=== PATIENT | female | born 1965 | race American Indian/Alaskan Native ===

== ENCOUNTER 2020-05-04 14:15 | Emergency (ER) | payer SELFPAY ==
[2020-05-04 14:21] VITALS: BP 212/97
--- NOTE | 2020-05-04 15:22 | Emergency Department Report ---
Blank Doc - Documentation Documentation: 55-year-old female that presents with right shoulder, neck and lower back pains s/p fall 3 days ago. Exam: spinal tenderness and shoulder tenderness This initial assessment/diagnostic orders/clinical plan/treatment(s) is/are subject to change based on patient's health status, clinical progression and re- assessment by fellow clinical providers in the ED. Further treatment and workup at subsequent clinical providers discretion. Patient/guardians urged not to elope from the ED as their condition may be serious if not clinically assessed and managed. Initial orders include: 1- Patient sent to [facility] for further evaluation and treatment 2- xrays
--- NOTE | 2020-05-04 16:24 | XRay Report ---
RIGHT SHOULDER 3 VIEWS INDICATION: pain s/p fall. COMPARISON: None. IMPRESSION: No acute osseous or soft tissue abnormality. No significant DJD. CERVICAL SPINE 3 VIEWS INDICATION: pain s/p fall. COMPARISON: None. IMPRESSION: Normal alignment. Mild degenerative disc disease is identified at C5-6. Moderate to sev ere degenerative disc disease is identified at C6-7. The facet joints are unremarkable. No acute oss eous or soft tissue abnormality. LUMBOSACRAL SPINE 3 VIEWS INDICATION: pain s/p fall. COMPARISON: None. IMPRESSION: Normal alignment. No significant discogenic DJD or facet arthropathy. No acute osseous or soft tissue abnormality. Signer Name: Jose R Mike Jr, MD Signed: 05/04/2020 4:19 PM Workstation Name: [id number]
--- NOTE | 2020-05-04 17:44 | Emergency Department Report ---
ED Fall HPI - General Chief Complaint: Fall Stated Complaint: FALL Time Seen by Provider: 05/04/20 15:19 Source: patient Mode of arrival: Wheelchair - History of Present Illness Initial Comments: 55-year-old female presents to ED with complaint of pain status post fall 2 weeks ago. 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 Patient reports injury to her neck, back, and right shoulder. Patient went to physical therapy today, reports severe pain following therapy. Patient states she cannot finish the physical therapy appointment. She reports numbness and tingling in her right arm and foot. Patient states she was given a prescription today for diclofenac and cyclobenzaprine, has not taken the medication yet. MD Complaint: fall -: week(s) (2) Fall From: standing Place Fall Occurred: work Loss of Consciousness: none Prolonged Down Time?: no Symptoms Prior to Fall: none Location: neck, back Location - Extremities: Right: Shoulder Severity: severe Quality: sharp Context: tripped/slipped Associated Symptoms: neck pain, numbness - Related Data Allergies Allergy/AdvReac Type Severity Reaction Status Date / Time No Known Allergies Allergy Unverified 05/04/20 14:17 ED Review of Systems ROS: Stated complaint: FALL Other details as noted in HPI Comment: All other systems reviewed and negative Musculoskeletal: as per HPI Neurological: paresthesias ED Past Medical Hx - Past Medical History Previous Medical History?: No - Surgical History Past Surgical History?: Yes Additional Surgical History: C section - Social History Smoking Status: Never Smoker Substance Use Type: None ED Physical Exam - General Limitations: No Limitations General appearance: alert, in no apparent distress - Head Head exam: Present: atraumatic, normocephalic - Eye Eye exam: Present: normal appearance - ENT ENT exam: Present: mucous membranes moist - Neck Neck exam: Present: other (right paraspinal tenderness) - Respiratory Respiratory exam: Present: normal lung sounds bilaterally. Absent: respiratory distress - Cardiovascular Cardiovascular Exam: Present: regular rate, normal rhythm - GI/Abdominal GI/Abdominal exam: Absent: distended - Extremities Exam Extremities exam: Present: normal inspection - Back Exam Back exam: Present: paraspinal tenderness (lower lumbar), vertebral tenderness (lower lumbar) - Neurological Exam Neurological exam: Present: alert, oriented X3, motor sensory deficit (paresthesias to right foot and right arm; strength 5/5) - Psychiatric Psychiatric exam: Present: normal affect, normal mood - Skin Skin exam: Present: warm, dry, intact, normal color ED Course Vital Signs 05/04/20 14:20 Temperature 98 F Pulse Rate 82 Respiratory 22 Rate Blood Pressure 212/97 [Left] O2 Sat by Pulse 98 Oximetry ED Medical Decision Making - Radiology Data Radiology results: report reviewed, image reviewed - Medical Decision Making 55-year-old female presents the ED status post fall 2 weeks ago. X-ray shows some degenerative disc disease in cervical spine. Patient exhibiting some radiculopathy. Patient currently seeing a [employer] physician. She has been provided information for homeland security program specialist for follow-up if she would like. Patient was given pain medication prescriptions earlier today at her appointment. Return precautions given. - Differential Diagnosis Fracture, muscle strain, radiculopathy Critical care attestation.: If time is entered above; I have spent that time in minutes in the direct care of this critically ill patient, excluding procedure time. ED Disposition Clinical Impression: Lumbar radiculopathy, acute, Cervical radiculopathy, acute Disposition: DC-01 TO HOME OR SELFCARE Is pt being admited?: No Condition: Stable Instructions: Lumbar Radiculopathy (ED), Cervical Radiculopathy (ED) Referrals: LILIAN RIVAS MD [Staff Physician] - 3-5 Days PRIMARY CARE, [Primary Care Provider] - 3-5 Days Forms: Work/School Release Form(ED) Time of Disposition: 17:44
== END 2020-05-04 17:58 | disposition home or self-care (01) ==
LOC: ED 14:15
DX: M54.12 Radiculopathy, cervical region (principal); M54.16 Radiculopathy, lumbar region; Z98.890 Other specified postprocedural states; W18.30XA Fall on same level, unspecified, initial encounter; Y93.89 Activity, other specified; Y92.89 Other specified places as the place of occurrence of the external cause; Y99.0 Civilian activity done for income or pay
CPT/HCPCS: 72040; 72100